=== PATIENT | female | born 1975 | race Caucasian/White ===

== ENCOUNTER 2022-08-08 22:00 | Emergency (ER) | payer BC, OTHER ==
[2022-08-08] MEDS ORDERED: Lidocaine 2% with EPINEPHrine 1:100,000 20 ML MDV ONE (22:22)
[2022-08-08] MEDS ORDERED: Bacitracin Oint 1 GM U/D Packet ONE (22:56)
== END 2022-08-08 23:10 | disposition home or self-care (01) ==
LOC: LL.ED 22:00 → SUPCPDRO 22:00 → LL.ED 23:10
DX: S01.81XA Laceration without foreign body of other part of head, initial encounter (principal); Z88.0 Allergy status to penicillin; W54.1XXA Struck by dog, initial encounter
CPT/HCPCS: 12013; 99282

== ENCOUNTER 2024-09-25 09:11 | Emergency (ER) | payer OTHER, BC | END 2024-09-25 10:31 | disposition home or self-care (01) | LOC: LL.ED 09:11 | DX: S93.401A Sprain of unspecified ligament of right ankle, initial encounter (principal); Z88.0 Allergy status to penicillin; Z88.1 Allergy status to other antibiotic agents; Z88.8 Allergy status to other drugs, medicaments and biological substances; Z79.84 Long term (current) use of oral hypoglycemic drugs; Z79.899 Other long term (current) drug therapy; W20.8XXA Other cause of strike by thrown, projected or falling object, initial encounter; Y99.0 Civilian activity done for income or pay | CPT/HCPCS: 73610-RT; 73630-RT; 99283; 99284 ==